=== PATIENT | male | born 1995 | race Hispanic/Latino ===

== ENCOUNTER 2017-04-05 21:59 | Emergency (ER) | payer OTHER ==
--- NOTE | 2017-04-05 22:27 | RAD ---
LEFT SHOULDER RADIOGRAPHS THREE VIEWS: 04/05/17 PROVIDED CLINICAL HISTORY: Left shoulder pain. FINDINGS: No evidence for fracture or other acute osseous abnormality. If there is persistent clinical concern, conservative management and followup imaging are advised. IMPRESSION: As above. POS: [facility]
--- NOTE | 2017-04-05 22:33 | RAD ---
LEFT SMALL DIGIT RADIOGRAPHS THREE VIEWS 04/05/17 PROVIDED CLINICAL HISTORY: Left hand pain. FINDINGS: There is no evidence for fracture or other acute osseous abnormality. If there is persistent clinical concern, conservative management and followup imaging are advised. IMPRESSION: As above. POS: [facility]
[2017-04-05 23:03] LABS: #Basophils 0.1 thou/uL (0.0-0.2); #Eosinphils 0.5 thou/uL (0.0-0.7); #Lymphocytes 3.2 thou/uL (1.20-3.40); #Neutrophils 4.3 thou/uL (1.40-6.50); %Basophils 1.2 % (0.0-1.0); %Eosinophils 5.2 % (0.0-10.0); %Lymphocytes 35.5 % (21.0-51.0); %Monocytes 10.9 % (0.0-10.0); Hematocrit 46.6 % (42.0-52.0); Mean Platelet Volume 6.8 fL (7.4-10.4); Red Blood Cell (RBC) Count 5.13 mill/uL (4.70-6.10); White Blood Cell (WBC) Count 9.2 thou/uL (4.8-10.8)
[2017-04-05 23:07] LABS: Bilirubin Negative (Negative); Blood, Urine Negative (Negative); Glucose, Urine (Dipstick) Negative (Negative); Ketone, Urine Negative (Negative); Nitrite Negative (Negative); Protein, Urine (Dipstick) Negative (Neg-Trace)
[2017-04-05 23:19] LABS: Amphetamine Not Detected (NotDetected); Methadone Not Detected (NotDetected); Methamphetamine Not Detected (NotDetected)
[2017-04-05 23:26] LABS: ALT (SGPT) 88 U/L (8-55); AST (SGOT) 31 U/L (5-34); Alkaline Phosphatase 110 U/L (40-150); Anion Gap 15 mmol/L (10-20); BUN (Urea Nitrogen) 20 mg/dL (8.9-20.6); Bilirubin, Total 0.3 mg/dL (0.2-1.2); Calc. Creatinine Clearance 0 mL/min (70-130); Calcium 9.3 mg/dL (7.8-10.44); Carbon Dioxide 19 mmol/L (22-29); Chloride 108 mmol/L (98-107); Estimated GFR-MDRD 69; Globulin 3.5 g/dL (2.4-3.5); Protein, Total 7.9 g/dL (6.0-8.3)
--- NOTE | 2017-04-05 23:30 | CT ---
CT BRAIN 04/05/17 PROVIDED CLINICAL HISTORY: Seizures. FINDINGS: The ventricular system appears normal in size and morphology. There is no evidence for intracranial h emorrhage or mass effect. The extracranial soft tissues and osseous structures appear unremarkable. IMPRESSION: No evidence for intracranial hemorrhage or mass effect. POS: [facility]
== END 2017-04-06 00:05 | disposition home or self-care (01) ==
LOC: ERS 21:59
DX: S40.012A Contusion of left shoulder, initial encounter (principal); R56.9 Unspecified convulsions; F17.210 Nicotine dependence, cigarettes, uncomplicated; F41.9 Anxiety disorder, unspecified; J45.909 Unspecified asthma, uncomplicated; X58.XXXA Exposure to other specified factors, initial encounter
CPT/HCPCS: 70450; 80053; 80306; 81003; 84146; 85025; 93005

== ENCOUNTER 2017-10-12 18:43 | Emergency (ER) | payer OTHER ==
[2017-10-12] MEDS ORDERED: Adacel (T-DAP) 0.5 ML VIAL ONE (19:31)
[2017-10-12] MEDS ORDERED: Bacitracin Zinc 1 Packet ONE (19:46)
== END 2017-10-12 21:05 | disposition home or self-care (01) ==
LOC: ERS 18:43
DX: S61.214A Laceration without foreign body of right ring finger without damage to nail, initial encounter (principal); F41.9 Anxiety disorder, unspecified; J45.909 Unspecified asthma, uncomplicated; F17.210 Nicotine dependence, cigarettes, uncomplicated; W26.8XXA Contact with other sharp object(s), not elsewhere classified, initial encounter
CPT/HCPCS: 90471; 90715

== ENCOUNTER 2018-04-20 00:59 | Emergency (ER) | payer OTHER ==
[2018-04-20] MEDS ORDERED: Proparacaine 0.5% Opth 15 ML BOT ONE (01:14)
[2018-04-20] MEDS ORDERED: Fluorescein Opthalmic Strip ONE (01:14)
== END 2018-04-20 01:32 | disposition home or self-care (01) ==
LOC: ERS 00:59
DX: H11.422 Conjunctival edema, left eye (principal); J45.909 Unspecified asthma, uncomplicated; F41.9 Anxiety disorder, unspecified; F32.9 Major depressive disorder, single episode, unspecified; F17.210 Nicotine dependence, cigarettes, uncomplicated; Z79.899 Other long term (current) drug therapy
CPT/HCPCS: 99283

== ENCOUNTER 2018-09-02 09:23 | Emergency (ER) | payer SELFPAY | END 2018-09-02 10:20 | disposition home or self-care (01) | LOC: ERS 09:23 | DX: J02.9 Acute pharyngitis, unspecified (principal); F41.9 Anxiety disorder, unspecified; F32.9 Major depressive disorder, single episode, unspecified; F17.210 Nicotine dependence, cigarettes, uncomplicated; J45.909 Unspecified asthma, uncomplicated; Z79.899 Other long term (current) drug therapy | CPT/HCPCS: 87081; 87430; 99283 ==